=== PATIENT | female | born 1950 | race Caucasian/White ===

== ENCOUNTER → 2017-01-05 | Outpatient (CLI) | payer MEDICARE, OTHER ==
[2017-01-05 11:59] LABS: BASOPHIL % 0.6 %; EOSINOPHIL # 0.2 K/uL (0.0-0.5); HEMATOCRIT 42.1 % (33.0-46.0); HEMOGLOBIN 14.4 g/dL (10.0-15.0); IMMATURE GRANULOCYTE % 0.2 %; LYMPHOCYTE # 1.2 K/uL (0.8-4.0); LYMPHOCYTE % 23.6 %; MCH 31.4 pg (27.0-34.0); MCHC 34.2 gm/dL (32.0-36.5); MCV 91.9 fl (83.0-98.0); MONOCYTE # 0.4 K/uL (0.0-1.0); MONOCYTE % 7.6 %; NEUTROPHIL # (ANC) 3.2 K/uL (1.8-7.8); NRBC % 0 /100WBC (0-0.00); PLATELET COUNT 199 K/uL (150-450); RBC 4.58 M/uL (3.50-5.50); RDW-CV 12.5 % (11.9-14.6)
[2017-01-05 12:21] LABS: ALBUMIN 3.9 gm/dL (3.5-5.0); ALK PHOS 95 IU/L (33-138); ALT 38 IU/L (12-78); ANION GAP 12.1 (10.0-19.0); AST 29 IU/L (10-40); BLOOD UREA NITROGEN 14 mg/dL (6-24); CALCIUM 8.9 mg/dL (8.5-10.5); CHLORIDE 105 mMol/L (96-110); CO2 28 mMol/L (22-32); CPK 149 IU/L (21-215); CREATININE 1.1 mg/dL (0.5-1.1); POTASSIUM 4.1 mMol/L (3.7-5.1); SODIUM 141 mMol/L (135-145); TOTAL BILIRUBIN 0.7 mg/dL (0.0-1.5); TOTAL PROTEIN 7.6 g/dL (6.0-8.4)
[2017-01-05 12:23] LABS: ESTIMATED GFR (MDRD EQUATION) 50
== END ==
LOC: LNHI 11:50
PROVIDERS: Internal Medicine Interventional Cardiology
DX: Q23.1 Congenital insufficiency of aortic valve (principal); I65.23 Occlusion and stenosis of bilateral carotid arteries; I71.2 Thoracic aortic aneurysm, without rupture; E78.4 Other hyperlipidemia

== ENCOUNTER → 2017-01-30 | Outpatient (CLI) | payer MEDICARE, OTHER ==
[2017-01-30 12:20] LABS: ANION GAP 12.2 (10.0-19.0); CALCIUM 9.1 mg/dL (8.5-10.5); CREATININE 1.2 mg/dL (0.5-1.1); POTASSIUM 4.2 mMol/L (3.7-5.1)
== END | disposition disaster alternative care site (69) ==
LOC: LNHI 12:00
PROVIDERS: Internal Medicine Interventional Cardiology
DX: Q23.1 Congenital insufficiency of aortic valve (principal); I71.2 Thoracic aortic aneurysm, without rupture; I65.23 Occlusion and stenosis of bilateral carotid arteries

== ENCOUNTER → 2017-02-11 | Outpatient (CLI) | payer MEDICARE, OTHER | END | disposition disaster alternative care site (69) | LOC: GBCOE 11:49 | DX: Z12.31 Encounter for screening mammogram for malignant neoplasm of breast (principal) | CPT/HCPCS: G0202 ==